=== PATIENT | female | born 1970 | race Caucasian/White ===

== ENCOUNTER 2018-06-18 12:33 | Emergency (ER) | payer OTHER ==
[2018-06-18] MEDS ORDERED: NS 1,000 ML IV ONE (13:11)
[2018-06-18] MEDS ORDERED: ONDANSETRON 4 MG/2 ML VIAL IVP ONE (13:11)
[2018-06-18] MEDS ORDERED: KETOROLAC 30 MG/1 ML SDV IVP ONE (13:11)
[2018-06-18] MEDS ORDERED: ONDANSETRON 4 MG/2 ML VIAL ONE (13:13)
[2018-06-18] MEDS ORDERED: KETOROLAC 30 MG/1 ML SDV ONE (13:13)
--- NOTE | 2018-06-18 13:13 | EDPHY ---
H & P Stated Complaint: left sided abdominal/flank pain N/V starting last night Source: Patient Exam Limitations: No limitations - Personal History LMP (Females 10-55): 8-14 Days Ago - Medical/Surgical History Hx Asthma: No Hx Chronic Respiratory Disease: No Hx Diabetes: No Hx Cardiac Disease: No Hx Renal Disease: No Hx Cirrhosis: No Hx Alcoholism: No Hx HIV/AIDS: No Hx Splenectomy or Spleen Trauma: No Other PMH: thyroid CA with thyroid removal - Social History Smoking Status: Never smoked Time Seen by Provider: 06/18/18 13:12 HPI/ROS: HPI: This was a 48-year-old female who presents with Chief Complaint: Left lower quadrant pain Location: Left lower quadrant Quality: Pain Duration: Several hours prior to arrival Signs and Symptoms: no fever, + nausea, + vomiting, no hematemesis, no blood in stool, no abdominal bloating, no diarrhea, no back pain, no urinary symptoms, no vaginal bleeding/discharge, no indigestion, no chest pain, no shortness of breath Timing: Severity: Context: Patient reports that around 10:00 a.m. she started to become severely nauseous and then several hours later started to developed sharp, constant, severe left lower quadrant pain that was nonradiating in nature. She reports that movement makes the pain worse. She has been helping her parents move and thought that the pain was muscular in nature but the pain was not relieved by in Epsom salt warm bath. She reports that she noticed dark urine yesterday but denies any burning with urination or urinary hesitancy. She has no prior history of kidney stones, ovarian cyst. Patient reports that she did eat breakfast but threw it up. She feels chilled at this time. Last menstrual period was 2 weeks ago. The last time she urinated was approximately 3 hr prior to arrival. Modifying Factors: none Comment: ROS: see HPI Constitutional: No fever, + chills, no weight loss Eyes: No blurred vision Respiratory: No shortness of breath, no cough Cardiovascular: No chest pain, no palpitations Gastrointestinal: + nausea, + vomiting, no diarrhea, no hematemesis, no blood in stool Genitourinary: No dysuria, no blood in urine Extremities: No myalgias, no edema Neurologic: No weakness, no numbness Skin: No rashes, no petechiae Hematologic: No bruising, no bleeding MEDICAL/SURGICAL/SOCIAL HISTORY: Medical/surgical history: Thyroid cancer with thyroid removal Social history: Never smoked. Family history noncontributory. CONSTITUTIONAL: Moderate distress middle-aged white female who appears nontoxic , awake and alert, polite and cooperative HEENT: Atraumatic and normocephalic, PERRL, EOMI. Nares patent; no rhinorrhea; no nasal mucosal edema. Tympanic membranes clear. Oropharynx clear, no exudate and moist pink mucosa. Airway patent. No lymphadenopathy. No meningismus. Cardiovascular: Normal S1/S2, regular rate, regular rhythm, without murmur rub or gallop. PULMONARY/CHEST: Symmetrical and nontender. Clear to auscultation bilaterally. Good air movement. No accessory muscle usage. ABDOMEN: Soft, nondistended, left flank tenderness, no rebound, + guarding, no peritoneal signs, no masses or organomegaly. No CVAT. EXTREMITIES: 2/2 pulses, strength 5/5, no deformities, no clubbing, no cyanosis or edema. NEUROLOGICAL: no focal neuro deficits. GCS 15. SKIN: Warm and dry, no erythema. no rash. Good capillary refill. (Taya Mejia) Constitutional: Initial Vital Signs Temperature (C) 36.6 C 06/18/18 12:39 Heart Rate 64 06/18/18 12:39 Respiratory Rate 20 06/18/18 12:39 Blood Pressure 134/93 H 06/18/18 12:39 O2 Sat (%) 96 06/18/18 12:39 O2 Delivery Mode Room Air Allergies/Adverse Reactions: No Known Allergies Allergy (Unverified 06/18/18 12:38) Home Medications: Medication Instructions Recorded Levothyroxine 06/18/18 Liothyronine Sodium 06/18/18 Ondansetron Odt [Zofran Odt 4 mg 4 mg PO Q4 PRN #12 tab 06/18/18 (*)] Tamsulosin HCl [Flomax 0.4 MG (*)] 0.4 mg PO DAILY #10 cap 06/18/18 oxyCODONE/APAP 5/325 [Percocet 1 - 2 tab PO Q4H PRN #20 tab 06/18/18 5/325 (*)] Medical Decision Making ED Course/Re-evaluation: Vital signs reviewed and stable upon arrival. No systemic signs. Labs, urinalysis, IV fluids, IV medications, CT abdomen pelvis scan without contrast ordered Given 1 L normal saline, IV morphine 4 mg, IV Zofran, IV Toradol 30 mg Called by radiologist, Dr. Ren who reports 7 x 4 mm left ureteral stone that is proximal at the L3 level with moderate hydronephrosis. Labs reviewed. No signs of platelet dysfunction/CARLOS ALBERTO/elevated LFTs/electrolyte imbalance/. WBC 10 K. Creatinine is 1.0 1440: Notified by nurse that patient is requesting more pain medications. IV Dilaudid 1 mg and p.o. Flomax given. Urinalysis shows blood and RBCs but no lindy infection. 1615: Reassessed patient who reports that pain is adequately controlled. Offered patient admission for pain control and she politely declined as she wishes to go home with pain medications and try to pass the stone on her own with Urology follow-up. Patient passed p. O. Trial prior to discharge. Patient given a strainer. Patient urinated prior to discharge without any difficulty. This patient was seen under the supervision of my secondary supervising physician. I evaluated care for this patient independently. Discussed this patient with Dr. Clayton. (Taya Mejia) The patient was evaluated and managed by the physician regulatory assistant. I have reviewed this chart and I agree with the findings and plan of care as documented , as indicated by my signature. I am the secondary supervising physician. ( Tori Clayton) Differential Diagnosis: Flank pain including but not limited to musculoskeletal causes, kidney stone, pyelonephritis, shingles, and intra-abdominal causes such as diverticulitis and appendicitis. (Taya Mejia) - Data Points Laboratory Results: Laboratory Results 06/18/18 13:05 06/18/18 13:05 Medications Given: Discontinued Medications Hydromorphone HCl (Dilaudid) 1 mg IVP EDNOW ONE Stop: 06/18/18 14:41 Last Admin: 06/18/18 14:47 Dose: 1 mg Sodium Chloride (Ns) 1,000 mls @ 0 mls/hr IV ONCE ONE; Wide Open PRN Reason: Protocol Stop: 06/18/18 13:12 Last Admin: 06/18/18 13:18 Dose: 1,000 mls Ketorolac Tromethamine (Toradol) 30 mg IVP EDNOW ONE Stop: 06/18/18 13:12 Last Admin: 06/18/18 13:18 Dose: 30 mg Morphine Sulfate (Morphine) 4 mg IVP EDNOW ONE Stop: 06/18/18 13:13 Last Admin: 06/18/18 13:19 Dose: 4 mg Ondansetron HCl (Zofran) 4 mg IVP EDNOW ONE Stop: 06/18/18 13:12 Last Admin: 06/18/18 13:18 Dose: 4 mg Tamsulosin HCl (Flomax) 0.4 mg PO EDNOW ONE Stop: 06/18/18 14:41 Last Admin: 06/18/18 14:46 Dose: 0.4 mg Departure - Departure Disposition: Home, Routine, Self-Care Clinical Impression: Ureterolithiasis, Renal colic on left side Condition: Good Instructions: Renal Colic (ED), Ureteral Stones (ED) Additional Instructions: Consume a minimum of 8-10 glasses of water or electrolyte fluid replacement drinks that include Gatorade, Powerade, Pedialyte. Strain all urine with a strainer keep stone to give to Urology. Take Flomax daily until the stone passes. Take Zofran 1 tab every 4 hours as needed for nausea, vomiting. Take ibuprofen 600 mg with food every 8 hr as needed for pain. Take Percocet 1-2 tabs every 4-6 hours as needed for severe, breakthrough pain. Return to the ER immediately if you experience new, continued or worsening abdominal pain, fevers/chills, inability to tolerate oral intake, new pain, or any other symptoms that concern you. Referrals: Jose Barros MD [Medical Doctor] - 3-4 days, if not improved Prescriptions: Ondansetron Odt [Zofran Odt 4 mg (*)] 4 mg PO Q4 PRN #12 tab PRN Reason: Nausea/Vomiting, Use 1st oxyCODONE/APAP 5/325 [Percocet 5/325 (*)] 1 - 2 tab PO Q4H PRN #20 tab PRN Reason: Pain, Severe Tamsulosin HCl [Flomax 0.4 MG (*)] 0.4 mg PO DAILY #10 cap
[2018-06-18 13:25] LABS: PLATELET COUNT 382 10^3/uL (150-400)
[2018-06-18] MEDS ORDERED: HYDROmorphONE/DILAUDID 2 MG/ML INJ IVP ONE (14:40)
[2018-06-18] MEDS ORDERED: TAMSULOSIN HCL 0.4 MG CAP PO ONE (14:40)
[2018-06-18] MEDS ORDERED: HYDROmorphONE/DILAUDID 1 MG/ML INJ ONE (14:45)
[2018-06-18 15:30] VITALS: BP 109/79
== END 2018-06-18 15:30 | disposition home or self-care (01) ==
DX: N20.1 Calculus of ureter (principal); N23 Unspecified renal colic; E86.9 Volume depletion, unspecified; Z85.850 Personal history of malignant neoplasm of thyroid
CPT/HCPCS: 96374; J1170; J1885; J2270; J2405